=== PATIENT | male | born 2000 | race American Indian/Alaskan Native ===

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

== ENCOUNTER 2021-03-10 06:23 | Emergency (ER) | payer MEDICAID ==
[2021-03-10 07:32] VITALS: BP 134/89
--- NOTE | 2021-03-10 08:21 | Emergency Department Report ---
ED Upper Extremity Inj HPI - General Chief Complaint: Extremity Injury, Upper Stated Complaint: RIGHT HAND INJURY Time Seen by Provider: 03/10/21 08:15 Source: patient Mode of arrival: Ambulatory Limitations: No Limitations - History of Present Illness Initial Comments: 21-year-old -[place] male presents to the emergency room reporting he had injured his right hand middle finger and index about 430 this morning while at work. Patient states he was putting boxes up and his hand got crushed with another box. Patient reports he has difficulty bending making a fist. Reports pain is worse with touching it and moving it. What makes it better as he wraps it. Patient denies any known drug allergies. Currently does not take any medications on a daily basis. Has a history of ADHD and asthma. MD Complaint: Injury to:: right, finger -: This morning Other Extremity Injury: Fingers: Right (Index and middle finger) Other Injuries: none Handedness: right Place: work Severity scale (0 -10): 6 Improves With: immobilization Worsens With: movement of extremity Associated Symptoms: denies other symptoms Treatments Prior to Arrival: bandage - Related Data Home Medications Medication Instructions Recorded Confirmed Last Taken Albuterol Mdi (or & Nicu Only) 2 puff IH PRN PRN 08/12/13 08/12/13 Unknown [ProAir HFA Inhaler] Previous Rx's Medication Instructions Recorded Last Taken Type Acetaminophen with Codeine 10 ml PO BID #1 bottle 02/26/15 Unknown Rx [Acetaminophen-Codeine ORAL LIQ] Ibuprofen [Motrin 600 MG tab] 600 mg PO Q8H PRN #30 tablet 12/19/17 Unknown Rx Prednisone [predniSONE 5 mg (6-Day 5 mg PO .TAPER #1 tab.ds.pk 01/22/18 Unknown Rx Pack, 21 Tabs)] diphenhydrAMINE [Benadryl CAP] 25 mg PO Q6HR PRN #20 capsule 01/22/18 Unknown Rx Ketorolac [Toradol] 10 mg PO Q6H PRN #10 tablet 10/31/18 Unknown Rx Tramadol HCl/Acetaminophen 1 each PO Q6HR PRN #10 tablet 10/31/18 Unknown Rx [Ultracet Tablet] Cyclobenzaprine [Flexeril] 10 mg PO TID PRN #30 tablet 01/02/19 Unknown Rx Naproxen [Naprosyn TAB] 500 mg PO BID PRN #30 tablet 01/02/19 Unknown Rx Ibuprofen [Motrin 600 MG tab] 600 mg PO Q8H PRN #21 tablet 03/10/21 Unknown Rx Allergies Allergy/AdvReac Type Severity Reaction Status Date / Time No Known Allergies Allergy Verified 01/21/18 15:46 ED Review of Systems ROS: Stated complaint: RIGHT HAND INJURY Other details as noted in HPI Comment: All other systems reviewed and negative ED Past Medical Hx - Past Medical History Previous Medical History?: Yes Hx Seizures: No Hx Asthma: Yes Additional medical history: ADHD - Surgical History Past Surgical History?: Yes Additional Surgical History: Tonsillectomy, NOSE, - Social History Smoking Status: Never Smoker Substance Use Type: None - Medications Home Medications: Home Medications Medication Instructions Recorded Confirmed Last Taken Type Albuterol Mdi (or & Nicu Only) 2 puff IH PRN PRN 08/12/13 08/12/13 Unknown History [ProAir HFA Inhaler] Acetaminophen with Codeine 10 ml PO BID #1 bottle 02/26/15 Unknown Rx [Acetaminophen-Codeine ORAL LIQ] Ibuprofen [Motrin 600 MG tab] 600 mg PO Q8H PRN #30 tablet 12/19/17 Unknown Rx Prednisone [predniSONE 5 mg (6-Day 5 mg PO .TAPER #1 tab.ds.pk 01/22/18 Unknown Rx Pack, 21 Tabs)] diphenhydrAMINE [Benadryl CAP] 25 mg PO Q6HR PRN #20 capsule 01/22/18 Unknown Rx Ketorolac [Toradol] 10 mg PO Q6H PRN #10 tablet 10/31/18 Unknown Rx Tramadol HCl/Acetaminophen 1 each PO Q6HR PRN #10 tablet 10/31/18 Unknown Rx [Ultracet Tablet] Cyclobenzaprine [Flexeril] 10 mg PO TID PRN #30 tablet 01/02/19 Unknown Rx Naproxen [Naprosyn TAB] 500 mg PO BID PRN #30 tablet 01/02/19 Unknown Rx Ibuprofen [Motrin 600 MG tab] 600 mg PO Q8H PRN #21 tablet 03/10/21 Unknown Rx ED Physical Exam - General Limitations: No Limitations General appearance: alert, in no apparent distress - Head Head exam: Present: atraumatic, normocephalic - Eye Eye exam: Present: normal appearance - ENT ENT exam: Present: normal external ear exam - Neck Neck exam: Present: normal inspection, full ROM - Respiratory Respiratory exam: Absent: accessory muscle use - Cardiovascular Cardiovascular Exam: Present: regular rate - Expanded Upper Extremity Exam Right Shoulder Exam: Present: normal inspection Upper Arm exam: Present: normal inspection Elbow exam: Present: normal inspection Forearm Wrist exam: Present: normal inspection Hand Wrist exam: Present: tenderness. Absent: full ROM, swelling - Back Exam Back exam: Present: normal inspection - Neurological Exam Neurological exam: Present: alert, oriented X3, normal gait - Psychiatric Psychiatric exam: Present: normal affect, normal mood - Skin Skin exam: Present: warm, dry, intact, normal color. Absent: rash ED Course Vital Signs 03/10/21 07:31 Temperature 97.9 F Pulse Rate 58 L Respiratory 16 Rate Blood Pressure 134/89 O2 Sat by Pulse 100 Oximetry ED Medical Decision Making - Radiology Data Radiology results: report reviewed Accession No. 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 No acute fracture is definitely seen Signer Name: Alfredo Garcia MD Signed: 03/10/2021 9:14 AM Workstation Name: [id number] Transcribed By: CW Dictated By: NASH GARCIA MD Electronically Authenticated By: NASH GARCIA MD Signed Date/Time: 03/10/21913 DD/ 1 TD/TT: - Medical Decision Making 21-year-old -[place] male presents to the emergency room reporting he had injured his right hand middle finger and index about 430 this morning while at work. Patient states he was putting boxes up and his hand got crushed with another box. Patient reports he has difficulty bending making a fist. Reports pain is worse with touching it and moving it. What makes it better as he wraps it. Patient denies any known drug allergies. Currently does not take any medications on a daily basis. Has a history of ADHD and asthma. X-ray of right hand fingers have been ordered. Critical care attestation.: If time is entered above; I have spent that time in minutes in the direct care of this critically ill patient, excluding procedure time. ED Disposition Clinical Impression: Injury of right index finger, Injury of right middle finger Disposition: HOME / SELF CARE / HOMELESS Is pt being admited?: No Does the pt Need Aspirin: No Condition: Stable Additional Instructions: X-rays are negative for any fractures or dislocations. Tylenol ibuprofen for pain management. Wear finger splint no more than 3 days. Prescriptions: Ibuprofen [Motrin 600 MG tab] 600 mg PO Q8H PRN #21 tablet PRN Reason: Pain Referrals: DAMION MCCORMICK MD [Staff Physician] - 3-5 Days Forms: Work/School Release Form(ED) Time of Disposition: 09:29
--- NOTE | 2021-03-10 09:18 | XRay Report ---
Right hand 3 views INDICATION: Injury FINDINGS: MCP joints and IP joints appear intact. No acute fracture is definitely seen Signer Name: Alfredo Garcia MD Signed: 03/10/2021 9:14 AM Workstation Name: [id number]
== END 2021-03-10 10:00 | disposition home or self-care (01) ==
LOC: ED 06:23
DX: S69.91XA Unspecified injury of right wrist, hand and finger(s), initial encounter (principal); J45.909 Unspecified asthma, uncomplicated; Z79.899 Other long term (current) drug therapy; Z90.49 Acquired absence of other specified parts of digestive tract; Z98.890 Other specified postprocedural states; X58.XXXA Exposure to other specified factors, initial encounter; Y93.89 Activity, other specified; Y92.89 Other specified places as the place of occurrence of the external cause; Y99.0 Civilian activity done for income or pay